=== PATIENT | male | born 1950 | race Caucasian/White ===

== ENCOUNTER 2018-05-27 10:26 | Emergency (ER) | payer MEDICAID, MEDICARE ==
[~2018-05-27] VITALS: Ht 162.6 cm; Wt 68.0 kg
[2018-05-27 10:40] VITALS: BP 112/59
--- NOTE | 2018-05-27 12:01 | NUR ---
For discharge- ACI given Home ambulatory Stable No complaints
== END 2018-05-27 12:01 | disposition home or self-care (01) ==
LOC: ER 10:31
DX: I10 Essential (primary) hypertension (principal); E78.00 Pure hypercholesterolemia, unspecified; E11.9 Type 2 diabetes mellitus without complications; Z98.890 Other specified postprocedural states